=== PATIENT | female | born 1950 | race African-American/Black ===

== ENCOUNTER 2022-11-01 14:52 | Emergency (ER) | payer OTHER ==
[~2022-11-01] VITALS: Ht 152.4 cm; Wt 54.0 kg
== END 2022-11-01 17:52 ==
LOC: ED 14:52
DX: K94.23 Gastrostomy malfunction (principal); Z91.040 Latex allergy status; Z88.0 Allergy status to penicillin; Z88.8 Allergy status to other drugs, medicaments and biological substances; Y83.8 Other surgical procedures as the cause of abnormal reaction of the patient, or of later complication, without mention of misadventure at the time of the procedure

== ENCOUNTER 2022-11-04 09:21 | Emergency (ER) | payer OTHER ==
[2022-11-04 09:42] LABS: BASO % 0.5 % (0.0-1.0); EOS # 0.9 10*3/uL (0.0-0.4); EOS % 15.2 % (1.0-4.0); HEMATOCRIT 29.9 % (37.0-47.0); LYMPH % 17.2 % (27.0-41.0); MEAN CELL VOLUME 95.5 fl (81.0-99.0); MEAN CORPUSCULAR HGB 30.7 pg (27.0-31.0); MEAN CORPUSCULAR HGB CONC 32.1 g/dl (33.0-37.0); MEAN PLATELET VOLUME 8.7 fl (9.6-12.3); MONO # 0.5 10*3/uL (0.1-1.0); MONO % 9.7 % (3.0-9.0); NEUT # 3.2 10*3/uL (2.3-7.9); NEUT % 57.2 % (47.0-73.0); PLATELET COUNT AUTOMATED 357 10*3/uL (130-400); RED BLOOD COUNT 3.13 10*6/uL (4.10-5.10); RED CELL DISTRI WIDTH 12.3 % (0-14.5); WHITE BLOOD COUNT 5.6 10*3/uL (4.8-10.8)
[2022-11-04 10:00] LABS: ACT PARTIAL THROMBO TIME 36.8 SECONDS (20.0-32.1); INTERNATIONAL NORM RATIO 1.2 (2.0-3.5)
[2022-11-04 10:03] LABS: ALKALINE PHOSPHATASE 91 U/L (46-116); BUN 15 mg/dl (9-23); CHLORIDE 96 mmol/L (98-107); LIPASE 31 U/L (12-53); SGPT/ALT 12 U/L (10-49); TOTAL PROTEIN 6.6 gm/dL (6.0-8.0)
== END 2022-11-04 12:53 ==
LOC: ED 09:21
PROVIDERS: Internal Medicine
DX: K94.23 Gastrostomy malfunction (principal); Z88.0 Allergy status to penicillin; Z91.040 Latex allergy status; Z88.8 Allergy status to other drugs, medicaments and biological substances; Z98.890 Other specified postprocedural states; Y83.8 Other surgical procedures as the cause of abnormal reaction of the patient, or of later complication, without mention of misadventure at the time of the procedure

== ENCOUNTER 2022-11-08 15:44 | Inpatient (IN) | payer OTHER ==
[2022-11-08 16:00] VITALS: BP 106/54
[2022-11-08 16:53] LABS: BASO % 0.5 % (0.0-1.0); EOS % 15.7 % (1.0-4.0); LYMPH % 15.4 % (27.0-41.0); MEAN CELL VOLUME 93.6 fl (81.0-99.0); MEAN CORPUSCULAR HGB 29.5 pg (27.0-31.0); MEAN CORPUSCULAR HGB CONC 31.6 g/dl (33.0-37.0); MEAN PLATELET VOLUME 8.8 fl (9.6-12.3); MONO # 0.6 10*3/uL (0.1-1.0); MONO % 8.9 % (3.0-9.0); NEUT # 3.8 10*3/uL (2.3-7.9); NEUT % 59.3 % (47.0-73.0); PLATELET COUNT AUTOMATED 458 10*3/uL (130-400); RED BLOOD COUNT 3.42 10*6/uL (4.10-5.10); RED CELL DISTRI WIDTH 12.5 % (0-14.5); WHITE BLOOD COUNT 6.4 10*3/uL (4.8-10.8)
[2022-11-08 17:27] LABS: ALKALINE PHOSPHATASE 96 U/L (46-116); BUN 17 mg/dl (9-23); CHLORIDE 96 mmol/L (98-107); POTASSIUM 4.3 mmol/L (3.4-5.1); SGPT/ALT 10 U/L (10-49); TOTAL PROTEIN 6.9 gm/dL (6.0-8.0)
[2022-11-08 20:03] VITALS: BP 117/60
[2022-11-08 22:02] VITALS: BP 117/60
[2022-11-08 23:02] VITALS: BP 101/45
[2022-11-09 00:02] VITALS: BP 104/56
[2022-11-09 01:09] VITALS: BP 139/61
[2022-11-09 02:03] VITALS: BP 113/58
[2022-11-09 05:36] VITALS: BP 116/53
[2022-11-09 06:18] LABS: HEMATOCRIT 31.9 % (37.0-47.0); MEAN CELL VOLUME 95.5 fl (81.0-99.0); MEAN CORPUSCULAR HGB 29.3 pg (27.0-31.0); MEAN CORPUSCULAR HGB CONC 30.7 g/dl (33.0-37.0); PLATELET COUNT AUTOMATED 421 10*3/uL (130-400); RED BLOOD COUNT 3.34 10*6/uL (4.10-5.10); RED CELL DISTRI WIDTH 12.5 % (0-14.5); WHITE BLOOD COUNT 5.4 10*3/uL (4.8-10.8)
[2022-11-09 06:22] LABS: MANUAL DIFF REFLEX YES
[2022-11-09 06:26] LABS: ALKALINE PHOSPHATASE 92 U/L (46-116); BUN 18 mg/dl (9-23); CHLORIDE 95 mmol/L (98-107); CHOLESTEROL 138 mg/dL (<200); FREE T4 1.04 ng/dl (0.89-1.76); LDL CHOLESTEROL 60 mg/dL (9-159); POTASSIUM 4.3 mmol/L (3.4-5.1); TOTAL PROTEIN 6.6 gm/dL (6.0-8.0); TRIGLYCERIDES 98 mg/dl (<150)
[2022-11-09 06:33] LABS: SGPT/ALT < 7 U/L (10-49)
[2022-11-09] MEDS ORDERED: TYLENOL325 M1 PO (07:20)
[2022-11-09] MEDS ORDERED: BUPROPION HYDR100 MG PEG ×2 (07:21→07:23)
[2022-11-09] MEDS ORDERED: DULCOLAX10 M1 R (07:21)
[2022-11-09] MEDS ORDERED: ANTACID PEG (07:25)
[2022-11-09 07:26] LABS: BASOPHILS 1 % (0-1); TOTAL CELLS COUNTED 100 #CELLS
[2022-11-09] MEDS ORDERED: CIPRO500 MG PEG (07:26)
[2022-11-09 07:27] LABS: PLATELET SUFFICIENCY HIGH (NORMAL)
[2022-11-09] MEDS ORDERED: ELIQUIS5 M1 PEG (07:28)
[2022-11-09] MEDS ORDERED: ARTHRITIS PAIN50 GM T (07:28)
[2022-11-09] MEDS ORDERED: ENTRESTO 24 MG1 EACH PEG (07:29)
[2022-11-09] MEDS ORDERED: Ipratropium Brom3 ML INH (07:37)
[2022-11-09] MEDS ORDERED: ISOSORBIDE MONO10 MG PEG (07:37)
[2022-11-09] MEDS ORDERED: LIDOCAINE HCL1 EACH T (07:38)
[2022-11-09] MEDS ORDERED: MELATONIN5 M7 PEG (07:39)
[2022-11-09] MEDS ORDERED: Lopressor25 MG PEG (07:40)
[2022-11-09] MEDS ORDERED: PROTONIX40 M2 PEG (07:40)
[2022-11-09] MEDS ORDERED: SIMETHICONE80 MG PEG (07:41)
[2022-11-09] MEDS ORDERED: SYNTHROID25 MCG PEG (07:42)
[2022-11-09 07:48] VITALS: BP 153/60
[2022-11-09 08:53] LABS: VITAMIN D, 25-HYDROXY 107.6 ng/mL (30-100)
[2022-11-09 12:39] VITALS: BP 126/60
[2022-11-09] MEDS ORDERED: SEPTDS PO (23:52)
[2022-11-10] MEDS ORDERED: ISOSORBIDE MONO10 MG PEG (13:08)
[2022-11-10] MEDS ORDERED: Ipratropium Brom3 ML INH (13:08)
[2022-11-10] MEDS ORDERED: LIDOCAINE1 EACH T (13:09)
[2022-11-10] MEDS ORDERED: LEVOTHYROXINE25 MCG PEG (13:09)
[2022-11-10] MEDS ORDERED: MELATONIN10 M2 PEG (13:10)
[2022-11-10] MEDS ORDERED: Lopressor25 MG PO (13:10)
[2022-11-10] MEDS ORDERED: PANTOPRAZOLE SO40 MG PEG (13:11)
[2022-11-10] MEDS ORDERED: SIMETHICONE80 MG PEG (13:11)
[2022-11-10] MEDS ORDERED: SEPTDS PO (13:12)
[2022-11-10] MEDS ORDERED: VISTARIL25 M2 PO (13:12)
[2022-11-10] MEDS ORDERED: ELIQUIS5 M1 PEG (18:30)
[2022-11-10] MEDS ORDERED: BUPROPION HYDR100 MG PEG ×2 (18:31)
[2022-11-10] MEDS ORDERED: CALCIUM CARBONAT1 GM PEG (18:32)
[2022-11-10] MEDS ORDERED: CIPRO500 MG/5 M PEG (18:32)
[2022-11-10] MEDS ORDERED: ENTRESTO 24 MG1 EACH PO (18:34)
[2022-11-11] MEDS ORDERED: TYLENOL325 M1 PO (01:44)
[2022-11-11] MEDS ORDERED: BACITRACIN28.4 GM T (01:46)
[2022-11-11] MEDS ORDERED: GENTLE LAXATIVE10 MG R (01:48)
[2022-11-11] MEDS ORDERED: ARTHRITIS PAIN150 GM T (01:52)
[2022-11-11] MEDS ORDERED: FLEET ENEMA 13133 ML R (01:56)
[2022-11-11] MEDS ORDERED: MILK OF MA400 MG/5 M PO (01:59)
[2022-11-11] MEDS ORDERED: PROTONIX40 M2 GT (02:00)
[2022-11-11] MEDS ORDERED: VOLTAREN ARTHRI20 GM T (03:19)
[2022-11-13] MEDS ORDERED: GLYDO11 ML T (16:04)
== END 2022-11-09 18:52 | DRG 393 ==
LOC: ED 15:44 → EDHOLD 19:37 → 5E 11-09 13:05 → EDHOLD 11-09 13:06
PROVIDERS: Internal Medicine; Physician Assistant Medical; ADMIT Family Medicine; ATTEND Family Medicine
DX: K94.23 Gastrostomy malfunction (principal); E43 Unspecified severe protein-calorie malnutrition; E87.1 Hypo-osmolality and hyponatremia; I50.22 Chronic systolic (congestive) heart failure; J44.9 Chronic obstructive pulmonary disease, unspecified; I11.0 Hypertensive heart disease with heart failure; G47.00 Insomnia, unspecified; F32.9 Major depressive disorder, single episode, unspecified; R60.1 Generalized edema; D64.9 Anemia, unspecified; R73.9 Hyperglycemia, unspecified; D75.839 Thrombocytosis, unspecified; Z88.0 Allergy status to penicillin; Z91.040 Latex allergy status; Z86.718 Personal history of other venous thrombosis and embolism; Z85.21 Personal history of malignant neoplasm of larynx

== ENCOUNTER 2022-11-09 22:39 | Emergency (ER) | payer OTHER ==
[~2022-11-09 22:39] MED LIST: ANTACID PEG; ARTHRITIS PAIN50 GM T; BUPROPION HYDR100 MG PEG; CIPRO500 MG PEG; DULCOLAX10 M1 R; ELIQUIS5 M1 PEG; ENTRESTO 24 MG1 EACH PEG; ISOSORBIDE MONO10 MG PEG; Ipratropium Brom3 ML INH; LIDOCAINE HCL1 EACH T; Lopressor25 MG PEG; MELATONIN5 M7 PEG; PROTONIX40 M2 PEG; SIMETHICONE80 MG PEG; SYNTHROID25 MCG PEG; TYLENOL325 M1 PO
[2022-11-09 23:13] LABS: BASO % 0.4 % (0.0-1.0); EOS % 14.4 % (1.0-4.0); HEMATOCRIT 32.3 % (37.0-47.0); LYMPH % 14.2 % (27.0-41.0); MEAN CELL VOLUME 93.6 fl (81.0-99.0); MEAN CORPUSCULAR HGB 29.6 pg (27.0-31.0); MEAN CORPUSCULAR HGB CONC 31.6 g/dl (33.0-37.0); MEAN PLATELET VOLUME 8.7 fl (9.6-12.3); MONO # 0.5 10*3/uL (0.1-1.0); NEUT # 4.2 10*3/uL (2.3-7.9); NEUT % 62.9 % (47.0-73.0); PLATELET COUNT AUTOMATED 472 10*3/uL (130-400); RED BLOOD COUNT 3.45 10*6/uL (4.10-5.10); RED CELL DISTRI WIDTH 12.5 % (0-14.5); WHITE BLOOD COUNT 6.8 10*3/uL (4.8-10.8)
[2022-11-09 23:24] LABS: ACT PARTIAL THROMBO TIME 35.3 SECONDS (20.0-32.1); INTERNATIONAL NORM RATIO 1.1 (2.0-3.5)
[2022-11-09 23:34] LABS: ALKALINE PHOSPHATASE 94 U/L (46-116); BUN 24 mg/dl (9-23); CHLORIDE 97 mmol/L (98-107); LIPASE 32 U/L (12-53); POTASSIUM 4.5 mmol/L (3.4-5.1); SGPT/ALT 8 U/L (10-49); TOTAL PROTEIN 6.9 gm/dL (6.0-8.0)
[2022-11-09] MEDS ORDERED: SEPTDS PO (23:52)
[2022-11-10] MEDS ORDERED: ISOSORBIDE MONO10 MG PEG (13:08)
[2022-11-10] MEDS ORDERED: Ipratropium Brom3 ML INH (13:08)
[2022-11-10] MEDS ORDERED: LEVOTHYROXINE25 MCG PEG (13:09)
[2022-11-10] MEDS ORDERED: LIDOCAINE1 EACH T (13:09)
[2022-11-10] MEDS ORDERED: Lopressor25 MG PO (13:10)
[2022-11-10] MEDS ORDERED: MELATONIN10 M2 PEG (13:10)
[2022-11-10] MEDS ORDERED: PANTOPRAZOLE SO40 MG PEG (13:11)
[2022-11-10] MEDS ORDERED: SIMETHICONE80 MG PEG (13:11)
[2022-11-10] MEDS ORDERED: VISTARIL25 M2 PO (13:12)
[2022-11-10] MEDS ORDERED: SEPTDS PO (13:12)
[2022-11-10] MEDS ORDERED: ELIQUIS5 M1 PEG (18:30)
[2022-11-10] MEDS ORDERED: BUPROPION HYDR100 MG PEG ×2 (18:31)
[2022-11-10] MEDS ORDERED: CALCIUM CARBONAT1 GM PEG (18:32)
[2022-11-10] MEDS ORDERED: CIPRO500 MG/5 M PEG (18:32)
[2022-11-10] MEDS ORDERED: ENTRESTO 24 MG1 EACH PO (18:34)
[2022-11-11] MEDS ORDERED: TYLENOL325 M1 PO (01:44)
[2022-11-11] MEDS ORDERED: BACITRACIN28.4 GM T (01:46)
[2022-11-11] MEDS ORDERED: GENTLE LAXATIVE10 MG R (01:48)
[2022-11-11] MEDS ORDERED: ARTHRITIS PAIN150 GM T (01:52)
[2022-11-11] MEDS ORDERED: FLEET ENEMA 13133 ML R (01:56)
[2022-11-11] MEDS ORDERED: MILK OF MA400 MG/5 M PO (01:59)
[2022-11-11] MEDS ORDERED: PROTONIX40 M2 GT (02:00)
[2022-11-11] MEDS ORDERED: VOLTAREN ARTHRI20 GM T (03:19)
== END 2022-11-10 00:40 | disposition home or self-care (01) ==
LOC: ED 22:39
PROVIDERS: Internal Medicine
DX: Z48.00 Encounter for change or removal of nonsurgical wound dressing (principal); I50.9 Heart failure, unspecified; Z91.040 Latex allergy status; Z88.0 Allergy status to penicillin; Z98.890 Other specified postprocedural states; Z87.891 Personal history of nicotine dependence

== ENCOUNTER 2022-12-13 10:38 | Emergency (ER) | payer OTHER ==
[~2022-12-13] VITALS: Wt 49.9 kg
[~2022-12-13 10:38] MED LIST changes: +ARTHRITIS PAIN150 GM T; +BACITRACIN28.4 GM T; +CALCIUM CARBONAT1 GM PEG; +CIPRO500 MG/5 M PEG; +ENTRESTO 24 MG1 EACH PO; +FLEET ENEMA 13133 ML R; +GENTLE LAXATIVE10 MG R; +GLYDO11 ML T; +LEVOTHYROXINE25 MCG PEG; +LIDOCAINE1 EACH T; +Lopressor25 MG PO; +MELATONIN10 M2 PEG; +MILK OF MA400 MG/5 M PO; +PANTOPRAZOLE SO40 MG PEG; +PROTONIX40 M2 GT; +SEPTDS PO; +VISTARIL25 M2 PO; +VOLTAREN ARTHRI20 GM T
== END 2022-12-13 18:27 | disposition short-term general hospital (02) ==
LOC: ED 10:38
DX: K94.23 Gastrostomy malfunction (principal); F41.9 Anxiety disorder, unspecified; Z91.040 Latex allergy status; Z88.0 Allergy status to penicillin; Z98.890 Other specified postprocedural states; Z87.891 Personal history of nicotine dependence; Y83.9 Surgical procedure, unspecified as the cause of abnormal reaction of the patient, or of later complication, without mention of misadventure at the time of the procedure